=== PATIENT | male | born 1960 | race African-American/Black ===

== ENCOUNTER 2018-01-17 14:01 | Emergency (ER) | payer SELFPAY ==
[~2018-01-17] VITALS: Ht 167.6 cm; Wt 77.1 kg
[2018-01-17] MEDS ORDERED: ZYPREXA10 MG ORAL (14:13)
[2018-01-17] MEDS ORDERED: OLANZAPINE20 MG ORAL (14:27)
--- NOTE | 2018-01-17 14:27 | Emergency Room Report ---
History of Present Illness General Chief Complaint: Medication Refill Source: Patient Present Illness HPI 57-year-old male patient presents ER requesting medication refill. patient reports that he takes olanzapine for bipolar disorder. Reports adjustment to the state does not have care established here. Denies suicidal or homicidal ideation. Denies fever, chest pain, shortness of breath, abdominal pain. Denies other acute symptoms at this time. Allergies: Coded Allergies: No Known Allergies (Unverified , 01/17/18) Patient History Past Medical History: see triage record Reviewed Nursing Documentation: PMH: Agreed; PSxH: Agreed Nursing Documentation-PMH Past Medical History: No History, Except For History Of Psychiatric Problem: Yes - bipolar Review of Systems All Other Systems: negative except mentioned in HPI Physical Exam Vital Signs Date Time Temp Pulse Resp B/P (MAP) Pulse Ox O2 Delivery O2 Flow Rate FiO2 01/17/18 14:09 98.0 76 18 151/99 96 Room Air 98.1 Sp02 EP Interpretation: reviewed, normal General Appearance: well appearing, no apparent distress, alert, GCS 15 Head: normocephalic, atraumatic Eyes: bilateral eye normal inspection, bilateral eye PERRL ENT: hearing grossly normal, normal pharynx, no angioedema, normal voice, uvula midline, moist mucus membranes Neck: full range of motion Respiratory: lungs clear, normal breath sounds, no rhonchi, no respiratory distress, no accessory muscle use, no wheezing, speaking full sentences Cardiovascular #1: regular rate, rhythm, no edema Gastrointestinal: non tender, soft, no mass, non-distended, no guarding, no rebound Genitourinary: no CVA tenderness Musculoskeletal: back normal, digits/nails normal, gait/station normal, normal range of motion, non-tender Neurologic: alert, oriented x3, responsive, motor strength/tone normal, sensory intact Psychiatric: mood/affect normal Skin: no rash Lymphatic: no adenopathy Medical Decision Making PA Attestation Dr. Pink is my supervising Physician whom patient management has been discussed with. Diagnostic Impression: Primary Impression: Encounter for medication refill ER Course Pt. presents to the ED requesting prescription refill. Multiple differentials were considered. Vital signs: are WNL, pt. is afebrile ORDERS: PE benign, lungs clear to auscultation. Patient denies suicidal or homicidal ideations at this time. Consult with MARISEL Duvall for medication refill. Informed patient would provide refill of medication. Contact primary care provider for further treatment. Informed patient ER cannot provide refills in the future; followup, management and prescription of long-term medications must be performed by primary care provider. Provided patient with contact information for mental health urgent care. DISCHARGE: Rx provided for 20mg Olanzapine, #30. At this time pt is stable for d/c to home. Patient is resting comfortably, in no acute distress, nontoxic appearing, talking without difficulty. Patient to take medications as instructed Will provide with patient care instructions and any necessary prescriptions. Care plan and follow-up instructions provided. Patient instructed to follow-up with primary care provider in 3 - 5 days. Patient questions asked and answered. Patient reports understanding and agreement to treatment plan. ER precautions given. Patient instructed to return to ER immediately for any new or worsening of symptoms including but not limited to increasing SOB, persistent fever. - Please note that this Emergency Department Report was dictated using [employer] corporate strategy technology software, occasionally this can lead to erroneous entry secondary to interpretation by the dictation equipment. Last Vital Signs Date Time Temp Pulse Resp B/P (MAP) Pulse Ox O2 Delivery O2 Flow Rate FiO2 01/17/18 14:09 98.0 76 18 151/99 96 Room Air 98.1 Disposition: HOME, SELF-CARE Condition: Stable Scripts Olanzapine (OLANZAPINE) 20 Mg Tablet 20 MG ORAL BID, #30 TAB 0 Refills Prov: Boyd Mcdonald 01/17/18 Patient Instructions: Medicine Refill at the Emergency Department Additional Instructions: Followup with primary care provider in 3 -5 days. Follow-up with mental health urgent care unable to arrange appointment with PCP or mental health care worker. Take medications as directed. Patient questions asked and answered. ER precautions given, patient instructed to return to ER immediately for any new or worsening of symptoms. Boyd Mcdonald January 17, 2018 14:27
[2018-01-17 15:43] VITALS: BP 151/99
== END 2018-01-17 14:30 | disposition home or self-care (01) ==
LOC: EMR 14:25
DX: Z76.0 Encounter for issue of repeat prescription (principal); F31.9 Bipolar disorder, unspecified
CPT/HCPCS: 99283